=== PATIENT | female | born 1970 | race Two or more races ===

== ENCOUNTER 2020-06-24 20:59 | Inpatient (IN) | payer OTHER ==
[~2020-06-24] VITALS: Ht 152.4 cm; Wt 58.5 kg
--- NOTE | 2020-06-24 21:10 | NUR ---
PTE ALERTA Y ORIENTADO X3 AMBULANDO. PTE REFIERE DOLOR ABDOMINAL DESDE LAS 6:00PM.
--- NOTE | 2020-06-24 22:05 | NUR ---
PTE ALERTA Y ORIENTADA X3, SE LE SUSY MUESTRAS DE LAB.BENJAMIN ORDEN MEDICA BAJO MEDIDAS ASEPTICAS.SE CANALIZA AREA PEDRO DE EDEMA Y DE ENROJECIMIENTO. SE LE ADMINISTRAN MEDICAMENTOS BENJAMIN ORDEN MEDICA Y SE EDUCA SOBRE TRATAMIENTO MEDICO. PTE MANEJADO POR ИРИНА.
--- NOTE | 2020-06-25 00:10 | NUR ---
SE LE COMIENZA EN ANTIBIOTICO DE CIPRO Y FLAGYL POR ORDEN MEDICA . SE LE ORIENTA A PTE SOBRE LOS MEDICAMENTOS Y SE OBSERVA POR CAMBIOS.PTE CONSULTADA CON LA DRA.MARLA ZHANG.
--- NOTE | 2020-06-25 07:22 | NUR ---
SE RECIBE PTE DEL TURNO ANTERIOR, ALERTA Y ORIENTADA EN RITCHIE TAMIKO ESFERAS, UBICADA EN SUZAN NIVEL MAS BAJ, ANDRADE DE IDENTIFICACION Y BARANDAS ELEVADAS POR PRECAUCION. SE OBSERVA CON BUEN PATRON RESPIRATORIO Y PIEL TIBIA AL TACTO. IV PATENTE Y PEDRO DE EDEMA O ERITEMA CON 0.9% NSS @100ML/HR. PENDIENTE CONSULTA CON DRA ZHANG. SE MANTIENE BAJO OBSERVACION.
[2020-06-25] MEDS ORDERED: KETOCONAZOLE15 GM (13:53)
[2020-06-28] MEDS ORDERED: INTESTINEX680 M1 PO (10:22)
== END 2020-06-28 12:13 | disposition home or self-care (01) | DRG 392 ==
LOC: ER 20:59 → SURH 06-25 07:53
PROVIDERS: ADMIT Surgery; ATTEND Surgery
PROC: BW2110Z Computerized Tomography (CT Scan) of Abdomen and Pelvis using Low Osmolar Contrast, Unenhanced and Enhanced (ICD-10-PCS; principal; 2020-06-25)
DX: K52.89 Other specified noninfective gastroenteritis and colitis (principal); K76.89 Other specified diseases of liver; K57.30 Diverticulosis of large intestine without perforation or abscess without bleeding

== ENCOUNTER 2020-11-29 08:23 | Emergency (ER) | payer OTHER ==
[~2020-11-29] VITALS: Ht 162.6 cm; Wt 60.8 kg
[~2020-11-29 08:23] MED LIST: INTESTINEX680 M1 PO; KETOCONAZOLE15 GM
[2020-11-29] MEDS ORDERED: CIPRO500 MG PO (08:38)
== END 2020-11-29 15:14 | disposition home or self-care (01) ==
LOC: ER 08:23
DX: R10.32 Left lower quadrant pain (principal)

== ENCOUNTER 2020-12-23 10:04 | Day surgery (SDC) | payer OTHER ==
[~2020-12-23 10:04] MED LIST changes: +CIPRO500 MG PO
== END 2020-12-23 14:45 | disposition home or self-care (01) ==
LOC: AMB-ENDOS 10:04 → CIR.AMB 15:30
PROVIDERS: ATTEND Surgery
DX: K62.89 Other specified diseases of anus and rectum (principal)

== ENCOUNTER 2021-02-20 23:50 | Emergency (ER) | payer OTHER ==
[~2021-02-20] VITALS: Ht 152.4 cm; Wt 61.7 kg
[2021-02-21] MEDS ORDERED: LEVSIN/SL0.125 MG SL ×4 (05:51→05:53)
[2021-02-21] MEDS ORDERED: INTESTINEX680 M1 PO (05:53)
== END 2021-02-21 06:02 ==
LOC: ER 23:50
DX: K52.89 Other specified noninfective gastroenteritis and colitis (principal)

== ENCOUNTER 2021-04-04 14:09 | Emergency (ER) | payer OTHER ==
[~2021-04-04] VITALS: Ht 152.4 cm; Wt 61.2 kg
[~2021-04-04 14:09] MED LIST changes: +LEVSIN/SL0.125 MG SL
== END 2021-04-04 19:23 | disposition home or self-care (01) ==
LOC: ER 14:09
DX: R10.9 Unspecified abdominal pain (principal); K57.30 Diverticulosis of large intestine without perforation or abscess without bleeding; Z88.8 Allergy status to other drugs, medicaments and biological substances

== ENCOUNTER 2021-04-06 05:41 | Emergency (ER) | payer OTHER ==
[~2021-04-06] VITALS: Ht 152.4 cm; Wt 61.7 kg
== END 2021-04-06 16:11 | disposition home or self-care (01) ==
LOC: ER 05:41
DX: R19.7 Diarrhea, unspecified (principal); R10.32 Left lower quadrant pain; Z88.2 Allergy status to sulfonamides; Z88.8 Allergy status to other drugs, medicaments and biological substances

== ENCOUNTER 2021-10-04 10:34 | Emergency (ER) | payer OTHER ==
[~2021-10-04] VITALS: Ht 152.4 cm; Wt 63.5 kg
== END 2021-10-04 18:49 | disposition home or self-care (01) ==
LOC: ER 10:34
DX: K57.90 Diverticulosis of intestine, part unspecified, without perforation or abscess without bleeding (principal); Z88.2 Allergy status to sulfonamides; Z88.1 Allergy status to other antibiotic agents

== ENCOUNTER 2021-10-06 11:38 | Emergency (ER) | payer OTHER ==
[~2021-10-06] VITALS: Ht 152.4 cm; Wt 63.5 kg
[2021-10-06] MEDS ORDERED: CIPRO500 MG PO (17:28)
[2021-10-06] MEDS ORDERED: DECADRON4 MG PO (17:28)
[2021-10-06] MEDS ORDERED: FLAGYL375 MG PO (17:28)
== END 2021-10-06 18:53 | disposition home or self-care (01) ==
LOC: ER 11:38
DX: K57.90 Diverticulosis of intestine, part unspecified, without perforation or abscess without bleeding (principal)

== ENCOUNTER 2022-05-04 09:15 | Inpatient (IN) | payer OTHER ==
[~2022-05-04] VITALS: Ht 152.4 cm; Wt 64.9 kg
[~2022-05-04 09:15] MED LIST changes: +DECADRON4 MG PO; +FLAGYL375 MG PO
[2022-05-09] MEDS ORDERED: AMITRIPTYLINE H10 MG (08:44)
[2022-05-13] MEDS ORDERED: TRAM1TAB98 PO (12:50)
[2022-05-13] MEDS ORDERED: NEURONTIN300 MG PO (12:50)
[2022-05-13] MEDS ORDERED: DICLOFENAC POTA50 MG PO (12:50)
== END 2022-05-13 13:17 | disposition home or self-care (01) | DRG 331 ==
LOC: O/R 05-08 07:08 → SURH 05-08 07:08 → SURG 05-08 09:15 → SURH 05-08 17:22
PROVIDERS: ADMIT Surgery; ATTEND Surgery
PROC: 0DBP4ZZ Excision of Rectum, Percutaneous Endoscopic Approach (ICD-10-PCS; 2022-05-08)
PROC: 0DTN4ZZ Resection of Sigmoid Colon, Percutaneous Endoscopic Approach (ICD-10-PCS; principal; 2022-05-08 11:30)
DX: K57.20 Diverticulitis of large intestine with perforation and abscess without bleeding (principal); N73.6 Female pelvic peritoneal adhesions (postinfective); N99.4 Postprocedural pelvic peritoneal adhesions; Z20.822 Contact with and (suspected) exposure to COVID-19